=== PATIENT | female | born 1930 | race Caucasian/White ===

== ENCOUNTER 2016-04-19 07:59 | Inpatient (IN) | payer MEDICARE ==
[2016-04-19] VITALS (7 sets, daily range): BP systolic 101–130; BP diastolic 59–75; PULSE 49–69; RESP 15–21; O2SAT 96–99
[~2016-04-19] VITALS: Ht 170.2 cm; Wt 72.5 kg
[~2016-04-19 07:59] MED LIST: AMLO5TAB2 PO; APIX5TAB PO; ASPI-973 PO; LIP40 PO; LOSA50TA37 PO; METO25TA6 PO; MULT1CAP33 PO; NITR0.4T SL; OMEG1CAP56 PO
[2016-04-19] MEDS ORDERED: Polyethylene Glycol (PEG) 17 Gm Powder PO PRN (08:40)
[2016-04-19] MEDS ORDERED: Alum-Mag Hydrox-Simeth 30 mL Suspension PO PRN (08:40)
[2016-04-19 10:25] LABS: Magnesium 1.7 mg/dL (1.6-2.6)
--- NOTE | 2016-04-19 12:26 | NUR ---
Admit to PCC Pt came to PCC at 0800, A&Ox3, vitals stable. Oriented to room and call light. PT had ate breakfast and taken all meds at home prior to arrival. Paolo made aware of pt arrival and rounded on pt. Admit completed at 1130. IV to be started after she eats her lunch. Sotolo given at 1000 EKG at 1200.
--- NOTE | 2016-04-19 17:46 | NUR ---
Assumed Care, Transfer Assumed care about 1500. She transferred from [facility] 2016 to [facility] 2022 about 1600. Her belongings were brought with her. Care continues.
--- NOTE | 2016-04-19 19:55 | HP ---
[address] [address] HISTORY AND PHYSICAL PATIENT: MER ARMAS : 1930 MR#: [id number] ADMIT: 04/19/2016 JOB ID: [id number] REASON FOR ADMISSION: To start sotalol for treatment of paroxysmal atrial fibrillation. CHIEF COMPLAINT: Persistent fatigue, palpitations in atrial fibrillation. BRIEF HISTORY: The patient is a very pleasant, 85-year-old woman with a history of paroxysmal atrial fibrillation. She has had a previous successful cardioversion and noted that when in normal sinus rhythm she has improved energy level, less fatigue and no significant exertional dyspnea. When in atrial fibrillation, she is more fatigued, experiences palpitations and tachycardia, mild shortness of breath but has not been syncopal or near syncopal. She denies chest pain. This morning, she feels well and she is in normal sinus rhythm at 63 beats per minute. She still notes some fatigue which may be medication-related. She does describes some mild anxiety over this admission to start the medications. PAST MEDICAL HISTORY: This is positive for coronary artery disease with prior bare metal stent placement in the LAD. This occurred in July 2010 and at that time there was a high-grade stenosis of the ostial 2nd diagonal artery, moderate mid left circumflex disease, and moderate eccentric plaque of the proximal right coronary artery. She is known to have a small PFO from atrial septal defect and has hyperlipidemia and hypertension. She is chronically anticoagulated with Eliquis. PAST SURGERY HISTORY: Also positive for hysterectomy, appendectomy, tonsillectomy, hip surgery for left hip fracture, right knee arthroplasty and scarlet fever during childbirth. ALLERGIES: No known allergies. REVIEW OF SYSTEMS: Constitutional: Positive for fatigue, no weight gain or loss. Cardiac: Positive for irregular beats and palpitations, no chest pain, claudication, edema or near syncope. GI: No blood in stool or heartburn. Neuro: No dizziness or paresthesias. Psychiatric: Positive for anxiety. Endocrine: Negative for polydipsia. Respiratory: No dyspnea or wheezing. Eyes: No visual changes. Musculoskeletal: No muscular weakness. Hematology: No bleeding or easy bruising. : No hematuria. Skin: No rash. PHYSICAL EXAM: Height 5 feet 7 inches, weight approximately 160 pounds, blood pressure 115/59, pulse regular at 69, respiratory rate 18, pulse oximetry 99% on room air, temperature 36.6. General appearance: No apparent distress, well nourished, pleasant and cooperative, elderly white female. HEENT: Normocephalic and atraumatic, mucous membranes moist. Neck: Supple. No thyromegaly. Carotid pulses are equal and brisk, no bruits. Cardiovascular: Regular rate and rhythm. No murmurs or gallop sounds heard, no JVD or peripheral edema. Respiratory: Breath sounds full and clear in all nicole. No rales. Neuro: Alert, well-oriented x4. Moving all four extremities normally. Psychiatric: Appropriate mood and affect. Skin: No rashes observed on face, neck or extremities. ASSESSMENT: 1. Paroxysmal atrial fibrillation on chronic anticoagulation with Eliquis 2. Hypertension, well managed with current medications. 3. Paroxysmal atrial fibrillation is symptomatic enough with palpitations, fatigue and elevated heart rate that she requires antiarrhythmic therapy. With history of coronary artery disease, flecainide and propafenone are not acceptable choices. PLAN: Begin antiarrhythmic therapy for atrial fibrillation with sotalol 80 mg b.i.d. Her baseline ECG, BNP for magnesium, potassium and creatinine will be obtained. We will monitor her BP and then heart rate if she goes into atrial fibrillation and determine whether to adjust her other blood pressure medications once sotalol is having an effect. She will be on continuous ECG monitoring looking for polymorphic ventricular tachycardia and occurrence of atrial fibrillation. Also, a 12-lead ECG will be obtained at 2-3 hours after each dose of sotalol to measure the QT interval. Her initial ECG prior to sotalol shows sinus rhythm at 61 bpm with QT 432, QTc 435 msec.
[2016-04-19 20:04] LABS: APPEARANCE,URINE CLEAR (CLEAR,HAZY); COLOR,URINE YELLOW (YELLOW); OCCULT BLOOD,URINE LARGE (NEGATIVE); UROBILINOGEN,URINE NORMAL (NORMAL)
[2016-04-19] MEDS: MeTOProlol XL 50 mg ER24 Tablet PO SCH (20:04)
[2016-04-19] MEDS ORDERED: MeTOProlol XL 50 mg ER24 Tablet PO SCH (20:30)
[2016-04-20] VITALS (9 sets, daily range): BP systolic 94–129; BP diastolic 40–70; PULSE 52–66; RESP 15–17; O2SAT 96–97
--- NOTE | 2016-04-20 05:37 | NUR ---
Cardiac Pt on sotalol dosing, 80mg p0 given at 2000, qtc 2 hr post med was 0.446, which is within the set parameter. Tele NSR 60's with rare sinus arrhythmia, BP stable, IV to SL, independent with activity, resting through the night.
[2016-04-20] MEDS: MeTOProlol XL 50 mg ER24 Tablet PO SCH ×2 (07:42→08:57)
--- NOTE | 2016-04-20 09:22 | PCM.PNCARD ---
Subjective Date of service Apr 20, 2016 Chief Complaint Slept very well but feels tired this morning. History of Present Illness Mrs. Duran was admitted yesterday to start antiarrhythmic therapy with sotalol for paroxysmal atrial fibrillation. She had previously been cardioverted to sinus rhythm with significant improvement in symptoms and sense of wellbeing but she relapsed into atrial fibrillation. The arrhythmia is episodic and she last had it while out shopping a few day ago and simply had to go home and lie down because she felt so weak and fatigued. Other than feeling tired this morning, she is not aware of any specific side effects from sotalol. Constitutional: Denies: Malaise, Weakness ENT: Denies: Dysphagia, Membranes Dry Eyes: Denies: Blurred Vision Cardiovascular: Denies: Chest Pain, Edema, Palpitations, Rapid Heart Rate, SOB on Exertion Respiratory: Denies: Cough, Shortness of Breath Gastrointestinal: Denies: Abdominal Pain, Change in Appetite Genitourinary: Denies: No burning or pain with urination Musculoskeletal: Denies: Swelling, Weakness Skin: Denies: Rash Neurological: Denies: Confusion, Difficulty Walking, Dizziness Endocrine: Denies: Diaphoresis Exam Vital Signs Vital Sign - Last Date Time Temp Pulse Resp B/P Pulse Ox O2 Delivery O2 Flow Rate FiO2 04/20/16 07:31 36.5 54 15 117/70 96 Room Air Intake and Output 04/19/16 04/19/16 04/20/16 Cumulative From/Thru 15:00 23:00 07:00 04/19/16 11:34 - 04/20/16 05:11 Intake Total 800 ml 290 ml 1090 ml Output Total 375 ml 375 ml Balance 425 ml 290 ml 715 ml Intake Oral 800 ml 260 ml 1060 ml IV Total 30 ml 30 ml Output Urine Total 375 ml 375 ml # Voids 3 3 General: Pleasant Cooperative Skin: Warm & dry to touch Eye: EOMS intact PERRL Ears, Nose & Throat: Hearing loss Good dentition Neck: No JVD Carotid pulses full/equal bilateral Chest: Clear auscultation w/o rales/wheeze Cardiac: Regular rhythm with normal S1-S2 Pulses: Pulses full/equal all extremities Abdomen: Soft, non-distended, non-tender Normal bowel sounds w/o bruits Extremities: Warm w/o clubbing,cyanosis,edema Neurological: Alert & oriented No gross motor or sensory deficits Oriented to time, person & place Psychological: Affect & interaction appropriate Lab and Diagnostics Result Diagram: 04/19/16 0955 12-lead ECG Mild sinus bradycardia in the 50's. The QTc has increased from 435 ms to 446 ms which is normal and expected with sotalol. Slight 1st degree block at 210 ms but other intervals and axes are normal. Assessment & Plan Assessment Mrs. Duran has remained in sinus rhythm and is tolerating sotalol 80 mg bid well. Her ECG intervals, specifically the QTc are satisfactory. Her outpatient doses of metoprolol and losartan were reduced in half each because her pulse rate and BP were also reduced by sotalol. She is tolerating the new medication well. Problems: Plan Continue sotalol at 80 mg bid with 12-lead ECGs at 2-3 hrs after each dose. Continue cardiac telemetry monitoring for heart rate trend and for tachyarrhythmias. Anticipate discharge home tomorrow by noon. Time spent 50 min. Oskar Avalos PA-C Apr 20, 2016 09:04
--- NOTE | 2016-04-20 09:57 | PCM.HPCARD ---
Subjective Date of service Apr 19, 2016 Primary Provider: Admitting Physician: Puma Boone MD Primary Care Physician: Dann Morgan MD Attending Physician: Puma Boone MD Admit Status: Direct Admit PMH Allergies: Coded Allergies: No Known Allergies (Unverified , 08/20/10) Social History Hx Alcohol Use: NoHx Substance Use: No Exam Vital Signs Vital Sign - Last Date Time Temp Pulse Resp B/P Pulse Ox O2 Delivery O2 Flow Rate FiO2 04/20/16 07:31 36.5 54 15 117/70 96 Room Air Intake and Output 04/19/16 04/19/16 04/20/16 Cumulative From/Thru 15:00 23:00 07:00 04/19/16 11:34 - 04/20/16 05:11 Intake Total 800 ml 290 ml 1090 ml Output Total 375 ml 375 ml Balance 425 ml 290 ml 715 ml Intake Oral 800 ml 260 ml 1060 ml IV Total 30 ml 30 ml Output Urine Total 375 ml 375 ml # Voids 3 3 Lab and Diagnostics Result Diagram: 04/19/16 0955 Assessment & Plan Assessment I agree with the physician mortgage assistant's note. The patient has been directly admitted for sotalol loading. She is a patient of mine. She has recurrent paroxysms of atrial fibrillation that is quite symptomatic leaves her quite tired after each event. The patient has decided to proceed with more aggressive medical therapy such as sotalol. We will continue to monitor with routine EKGs over the next 2 nights. Hopefully she will be discharge on Tuesday. I have also examined the patient and discussed the plan with the patient. Puma Boone MD Apr 20, 2016 09:56
--- NOTE | 2016-04-20 11:10 | NUR ---
Bradycardia This morning at 0720 her telemetry was sinus bradycardia 58. Withheld her Metoprolol due to bradycardia. Spoke with SARAH Gómez who explained that he would like her to have the Metoprolol and to continue watching her rate. Administered it. Her telemetry now is sinus bradycardia 54. Care continues.
--- NOTE | 2016-04-20 12:52 | NUR ---
Social Work Note: Initial Assessment Data& Assessment: EMR reviewed. SW met with pt at bedside to discuss discharge planning, SW role explained. Sofi Duran is a 85 year old female admitted on 04/19/2016 for AFIB. Pt has Medicare and [employer] supplemental insurance coverage. PT sees Robert Morgan MD for primary care. Pt lives in [place] with her daughter and is independent at baseline with all ADL's. Pt is a very active individual and does not use any DME. Although she does have walking sticks for hiking. Pt drives. Pt denies any HH or SNF hx. Pt denies LTC insurance or VA benefits. Pt confirms she has DPOA paperwork completed, SW requested a copy when possible. Pt denies any other needs at this time. Pt explained she drove herself to the hospital and plans to drive herself home at discharge. No other discharge needs identified at this time. SW to continue to follow if any needs arise. Plan: Anticipated discharge home via POV when medically ready. Pt denies any other needs at this time. Pt explained she drove herself to the hospital and plans to drive herself home at discharge. No other discharge needs identified at this time. SW to continue to follow if any needs arise. MYRON [place] Addendum: 04/20/16 at 1350 by TONE FUENTES Amended: Links added.
[2016-04-21 03:25] VITALS: BP 116/63; PULSE 57; RESP 16; O2SAT 96
--- NOTE | 2016-04-21 06:44 | NUR ---
EKG/Rest Pt's EKG 2H after the administration of 80mg sotalol PO shows the pt's QTc 424. Pt was able to rest throughout the night and had no c/o pain. Pt's VSS.
[2016-04-21 07:58] VITALS: BP 123/62; PULSE 59; RESP 16; O2SAT 96
[2016-04-21 09:36] VITALS: PULSE 57
--- NOTE | 2016-04-21 10:16 | PCM.DIMED ---
Discharge Instructions Date of Service Apr 21, 2016 Dates of Hospitalization Apr 19, 2016 at 07:59 Discharge Diagnosis Discharge Diagnosis Paroxysmal atrial fibrillation Diet No restrictions Activity No restrictions Call your provider Shortness of breath, Weakness (unilateral) Patient Instructions Patient will be scheduled to follow-up with me in about 6 weeks. Provider: Puma Boone MD Follow-up in: 6 weeks Puma Boone MD Apr 21, 2016 10:16
[2016-04-21] MEDS ORDERED: BET80 PO (10:21)
--- NOTE | 2016-04-21 11:04 | PCM.DC.CAR ---
Discharge Summary Date of Service Apr 21, 2016 Date of Hospital Admission Apr 19, 2016 at 07:59 Date of Discharge: Apr 21, 2016 Providers: Admitting Physician: Puma Boone MD Primary Care Physician: Dann Morgan MD Attending Physician: Puma Boone MD Diagnosis at Time of Discharge Paroxysmal atrial fibrillation Problems: Brief History and Physical: Patient was admitted for sotalol loading. Her EKGs have shown some degree of lengthening of her QTc but it is still within normal limits. Hospital Course: We had to stop her metoprolol due to sinus bradycardia. She has done very well and the only changes we have made is switching her metoprolol to sotalol. Discharge Medications Amlodipine (Amlodipine) 5 Mg Tablet 5 MG PO DAILY Apixaban (Eliquis) 5 Mg Tablet 5 MG PO BID Aspirin (Aspirin) 81 Mg Tablet 81 MG PO HS Atorvastatin (Lipitor) 40 Mg Tablet 40 MG PO HS Sotalol (Betapace) 80 Mg Tablet 80 MG PO BID As needed Nitroglycerin SL (Nitrostat) 0.4 Mg Tab.subl 0.4 MG SL Q5MIN PRN PRN For Chest Pain Miscellaneous Medications Losartan Potassium (Losartan Potassium) 50 Mg Tablet 50 MG PO Multivitamin (Multivitamins) 1 Each Capsule 1 EACH PO Dakota-3 Fatty Acids/Fish Oil (D[place]ota 3 1,000 mg Softgel) 1 Each Capsule 1 EACH PO Followup Plan Discharge Activity: No restrictions Patient Instructions Patient will be scheduled to follow-up with me in about 6 weeks. Time spent Discharge time <30 minutes Puma Boone MD Apr 21, 2016 11:04
--- NOTE | 2016-04-21 11:30 | NUR ---
Discharge She discharged at 1125 and walked out on her own. She took all her belongings and discharge paperwork (instructions, care notes, prescription). Her questions were answered. Her IV and telemetry were discontinued intact. She expressed appreciation for her care and said she gives us a "five start rating."
== END 2016-04-21 11:23 | disposition home or self-care (01) | DRG 310 ==
LOC: PCC 07:59
PROVIDERS: ADMIT Internal Medicine Cardiovascular Disease; ATTEND Internal Medicine Cardiovascular Disease
DX: I48.0 Paroxysmal atrial fibrillation (principal); Z79.01 Long term (current) use of anticoagulants; R00.1 Bradycardia, unspecified; T44.7X5A Adverse effect of beta-adrenoreceptor antagonists, initial encounter; Z98.61 Coronary angioplasty status